=== PATIENT | female | born 1965 ===

== ENCOUNTER 2016-07-25 05:08 | Inpatient (IN) | payer OTHER ==
[~2016-07-25] VITALS: Ht 162.6 cm; Wt 81.6 kg
[2016-07-25] VITALS (14 sets, daily range): BP systolic 116–135; BP diastolic 68–88
[~2016-07-25 05:08] MED LIST: NKM
[2016-07-25] MEDS ORDERED: Thrombin 5000 units TOPIC ONE (06:23)
[2016-07-25] MEDS ORDERED: Bacitracin 50000 Units Vial ONE (06:24)
[2016-07-25] MEDS ORDERED: Bupivacaine w/Epi 0.5% 30ml Vial INJ ONE (06:24)
[2016-07-25] MEDS ORDERED: Vancomycin 1gm inj IVPB ONE (06:24)
[2016-07-25] MEDS ORDERED: Thrombin 5000 units spray kit TOPIC ONE (06:40)
[2016-07-25] MEDS ORDERED: Gelfoam Absorbable 1gm powder pkt TOPIC ONE (06:40)
[2016-07-25] MEDS ORDERED: LR 1000ml 1,000 ML IVLG SCH (06:53)
[2016-07-25] MEDS ORDERED: Norco 5mg/325mg tab ORAL PRN ×2 (07:00→14:52)
[2016-07-25] MEDS ORDERED: Oxycodone/Acetaminophen 5-325 ORAL PRN (07:00)
[2016-07-25] MEDS ORDERED: Ketorolac 60mg Inj IV PRN (07:00)
[2016-07-25] MEDS ORDERED: Labetalol 5mg/ml 20ml vial IV ONE (07:00)
[2016-07-25] MEDS ORDERED: fentaNYL 100 mcg/2 mL IV PRN (07:00)
[2016-07-25] MEDS ORDERED: LR 1000ml ONE (07:00)
[2016-07-25] MEDS ORDERED: Ketorolac 30mg Inj IV PRN (07:00)
[2016-07-25] MEDS ORDERED: Dexamethasone 20mg/5ml IVP ONE (07:00)
[2016-07-25] MEDS ORDERED: fentaNYL 250mcg/5ml ONE (07:00)
[2016-07-25] MEDS ORDERED: Atropine Inj 1mg/10ml Syr IV PRN (07:00)
[2016-07-25] MEDS ORDERED: Succinylcholine 20mg/ml 10ml vial ONE (07:00)
[2016-07-25] MEDS ORDERED: Dexamethasone 4mg/ml vial ONE (07:00)
[2016-07-25] MEDS ORDERED: Metoclopramide 10mg/2ml Inj IVP PRN (07:00)
[2016-07-25] MEDS ORDERED: fentaNYL 100 mcg/2 mL IV ONE (07:00)
[2016-07-25] MEDS ORDERED: Meperidine 25mg/0.5ml Inj IV PRN (07:00)
[2016-07-25] MEDS ORDERED: NS Irrig 1000ml ONE (07:00)
[2016-07-25] MEDS ORDERED: Lidocaine 1% MPF 10mg/ml 5ml ONE (07:00)
[2016-07-25] MEDS ORDERED: Norco 7.5mg/325mg tab ORAL PRN (07:00)
[2016-07-25] MEDS ORDERED: Hydromorphone 0.5mg/0.5ml inj IVP PRN (07:00)
[2016-07-25] MEDS ORDERED: DiphenhydrAMINE 50mg/ml Inj IVP PRN (07:00)
[2016-07-25] MEDS ORDERED: ceFAZolin sod 2 GM in D5W 110 ML IVPB ONE (07:00)
[2016-07-25] MEDS ORDERED: LORazepam Inj 2mg/ml 1ml IV PRN (07:00)
[2016-07-25] MEDS ORDERED: Midazolam 2mg/2ml Inj IVP PRN (07:00)
[2016-07-25] MEDS ORDERED: Sterile Water Irrig 1000ml IRRIG ONE (07:00)
[2016-07-25] MEDS ORDERED: Propofol 10mg/ml 20ml IV ONE (07:00)
--- NOTE | 2016-07-25 07:15 | Pre-Procedure Note/Attestation ---
Pre-Procedure Note/Attestation Complete Prior to Procedure Procedure Narrative: acdf c45 and c56 Indications for Procedure Pre-Operative Diagnosis: cervical myeloradiculopathy Attestation I attest that I discussed the nature of the procedure; its benefits; risks and complications; and alternatives (and the risks and benefits of such alternatives ), prior to the procedure, with the patient (or the patient's legal agency service representative). I attest that, if there was a reasonable possibility of needing a blood transfusion, the patient (or the patient's legal agency service representative) was given the [facility] standardized written summary, pursuant to the [place] Blood Safety Act ([place] Health and Safety Code # 1645, as amended). I attest that I re-evaluated the patient just prior to the surgery and that there has been no change in the patient's H&P, except as documented below: JULIANNA GONZALES July 25, 2016 07:15
--- NOTE | 2016-07-25 07:18 | 48 Hour Post Anesthesia Eval ---
JULIANNA GONZALES July 25, 2016 07:18
[2016-07-25] MEDS ORDERED: Acetaminophen (Non formulary) 1,000 MG/100 ML ML IV ONE (08:00)
--- NOTE | 2016-07-25 08:47 | Anethesia Preoperative Eval ---
Anesthesia Pre-op PMH/ROS General Date of Evaluation: July 25, 2016 Time of Evaluation: 07:09 Anesthesiologist: Gabbie ASA Score: ASA 3 Mallampati Score Class I : Soft palate, uvula, fauces, pillars visible Class II: Soft palate, uvula, fauces visible Class III: Soft palate, base of uvula visible Class IV: Only hard plate visible Mallampati Classification: Class II Surgeon: Yahir Diagnosis: Neck Pain Surgical Procedure: ACDF C4-5, C5-6, Allograft Anesthesia History: none Family History: no anesthesia problems Allergies: Coded Allergies: SULFA (SULFONAMIDE ANTIBIOTICS) (Verified Allergy, Severe, 07/24/16) SULFAMETHOXAZOLE (Verified Allergy, Severe, 07/24/16) TRIMETHOPRIM (Verified Allergy, Severe, 07/24/16) Medications: see eMAR Past Medical History Cardiovascular: Reports: HTN Other: obesity - BMI 30 PSxH Narrative: Breast Reduction, Cholecystectomy, C/S X3 Anesthesia Pre-op Phys. Exam Physician Exam Last Vital Signs Date Time Temp Pulse Resp B/P Pulse Ox O2 Delivery O2 Flow Rate FiO2 07/25/16 05:53 97.5 77 20 135/84 95 Room Air Constitutional: NAD Neurologic: CN 2-12 intact Cardiovascular: RRR Respiratory: CTA Gastrointestinal: S/NT/ND Airway Exam Mallampati Score: Class II MO: full ROM: limited Teeth: intact Anesthesia Pre-op A/P Labs Urine Test Test 07/25/16 05:25 Urine HCG, Qualitative Negative Risk Assessment & Plan Assessment: ASA 3 Plan: GA, BIS, Glidescope Pre-Antibiotics Dru Grams Ancef IV Given Within 1 Hr of Incision: Yes Time Given: 07:26 Alex Cartwright MD July 25, 2016 08:47
--- NOTE | 2016-07-25 08:48 | Immediate Post-Op Evaluation ---
Immediate Post-Op Evalulation Immediate Post-Op Evalulation Procedure: ACDF C4-5, C5-6, Allograft Date of Evaluation: July 25, 2016 Time of Evaluation: 11:14 IV Fluids: 800 LR Blood Products: 0 Estimated Blood Loss: 25 Urinary Output: 200 Blood Pressure Systolic: 130 Blood Pressure Diastolic: 73 Pulse Rate: 115 Respiratory Rate: 16 O2 Sat by Pulse Oximetry: 95 Temperature (Fahrenheit): 97.7 Pain Score (1-10): 3 Nausea: No Vomiting: No Complications 0 Patient Status: awake, reacts, patent, extubated, none Hydration Status: adequate Dru Grams Ancef IV Given Within 1 Hr of Incision: Yes Time Given: 07:26 Alex Cartwright MD July 25, 2016 08:48
--- NOTE | 2016-07-25 10:54 | Brief Operative Note ---
Immediate Post Operative Note Operative Note Pre-op Diagnosis: cervical myeloradiculopathy Procedure: acdf c45 and c56 Post-op Diagnosis: same as above Post-op Diagnosis: same as pre-op Surgeon: socorro Calliope Player: frederic Anesthesiologist: salazar Anesthesia: general Specimen: none Complications: none Condition: stable Fluids: 800cc Estimated Blood Loss: volume - less than 25 cc Drains: none Implant(s) used?: Yes JULIANNA GONZALES July 25, 2016 10:54
--- NOTE | 2016-07-25 13:51 | Diagnostic Imaging Report ---
Indication: Neck Pain Findings: Fluoroscopic views of the cervical spine were obtained. Anterior cervical fusion at C4-6 with discectomy/disc prosthesis noted on fluoroscopically obtained imaging. Impression: Intraoperative imaging
[2016-07-25] MEDS ORDERED: Naloxone 0.4mg/ml Inj IVP PRN (14:51)
[2016-07-25] MEDS ORDERED: HYDROmorphone 1mg/ml Carpuject SUBQ PRN (14:51)
[2016-07-25] MEDS ORDERED: HYDROmorphone 1mg/ml Carpuject IVP PRN (14:52)
[2016-07-25] MEDS: D5 1/2NS 1,000 ML IV SCH (15:19)
[2016-07-25] MEDS: ceFAZolin sod 1 GM in D5W 55 ML IV SCH (15:37)
[2016-07-25] MEDS: Docusate 100mg cap ORAL SCH (17:35)
[2016-07-26] MEDS: ceFAZolin sod 1 GM in D5W 55 ML IV SCH ×2 (00:06→08:06)
--- NOTE | 2016-07-26 00:18 | Operative Note - Dictated ---
DATE OF OPERATION: 07/25/2016 PREOPERATIVE DIAGNOSIS: C4-5 and C5-6 disc extrusions with spinal cord compression, stenosis, myelomalacia, and upper extremity myeloradiculopathy. POSTOPERATIVE DIAGNOSIS: C4-5 and C5-6 disc extrusions with spinal cord compression, stenosis, myelomalacia, and upper extremity myeloradiculopathy. PROCEDURE PERFORMED: 1. Interbody arthrodesis of C4-5 and C5-6. 2. Anterior cervical instrumentation, C4-5 and C5-6. 3. Anterior diskectomy with decompression of the spinal cord at C4-5 and C5-6. 4. Implantation of PEEK with local autograft and allograft at C4-5 and C5-6. 5. Intraoperative use of fluoroscopy. 6. Intraoperative use of microscope. 7. SSEP/MEP/EMG neuromonitoring. SURGEON: Kalyan Sinclair M.D. TECHNICAL SALES SUPPORT SPECIALIST: Henry Machuca M.D. ANESTHESIA: General endotracheal anesthesia. ANESTHESIOLOGIST: Alex Cartwright M.D. ESTIMATED BLOOD LOSS: Less than 25 mL. INTRAVENOUS ANTIBIOTICS: 2 g of Ancef. OTHER IV MEDICATIONS: 10 mg of dexamethasone. COMPLICATIONS: None. BACKGROUND INDICATIONS: This is pleasant female who presented with myeloradiculopathy, pain, numbness and tingling in the upper extremities, and upper motor neuron signs. She had failed nonoperative treatments and option for above treatment were given. Risks, alternatives, and benefits were discussed with the patient. Risks include, but are not limited to anesthesia complications including and medical complications including liver, kidney and cardiopulmonary deficits; bleeding; infection; dysphonia; dysphagia; hematoma of the neck; nerve root injury; paralysis; spinal cord injury; CSF leak; dural tear; fracture of the hardware, loosening of the hardware, and need for revision surgery; swallowing difficulties; esophageal injury; tracheal injury; recurrent laryngeal nerve injury as well as other complications including compartment syndrome. The patient understood and wished to proceed. All the patient's questions were answered. Written and verbal consent was given. No guarantees were given. OPERATIVE FINDINGS: Disk extrusions at C4-5 and C5-6 with spinal cord compression and neural foraminal stenosis and stenosis for the bilateral exiting nerve roots at C4-5 and C5-6. DESCRIPTION OF OPERATION: The patient was brought to the operating room supine on a stretcher. Appropriate IV lines were placed by the anesthesiologist. A surgical time-out was called. 2 g of Ancef was administered 30 minutes before the incision. 10 mg of dexamethasone was administered. The patient was induced and intubated without complication. The patient was placed onto the operating room table. The neck was placed into neutral alignment. The arms were tucked by the side. All bony prominences were well padded as well as the four extremities. SSEP/MEP/EMG monitoring leads were placed, recorded, and remained stable throughout the case. Preoperative fluoroscopy revealed the planned incision to be over the C4-5 and C5-6 vertebral bodies. Fluoroscopy revealed the neck to be in adequate alignment. The neck was prepped and draped in the usual sterile fashion. At this point, the intraoperatively sterilely draped microscope was brought into the field. The incision was carried out with a scalpel on the anterior right side of the neck in the crease of the neck. Hemostasis was achieved with bipolar cautery. The platysma was incised in line with the skin incision. Blunt dissection was carried out in the interval between the strap muscles and sternocleidomastoid. Superficial cervical fascia was dissected caudally as well as cephalad. Carotid pulses palpated and found to be well lateral to the field of dissection. Deep cervical fascia was encountered. Once the deep cervical fascia was encountered, blunt dissection was carried out with [place] as well as finger dissection to find the prevertebral space. The longus colli was found on both sides of the spine, and the longus colli was carefully subperiosteally dissected off of the spine. At this point, retractors were set into place. The cuff pressure was released. The spinal needle was used to identify the C4-5 and C5-6 disc spaces with lateral fluoroscopy. Retractors were set into place. At this point, attention was diverted first to the C5-6 level. The diskectomy was begun with #15 scalpel. With straight and curved curettes; #2, #3, and #1 Kerrison punches; and a high-speed drill, a radical diskectomy was accomplished at C5-6. Endplate cartilage was removed. Endplate bone was well preserved. The high-speed drill was used to remove the posterior aspect of the C5 and C6 vertebral bodies to the level of the posterior longitudinal ligament. A Microsect curette was taken to the left corner of the posterior longitudinal ligament where there was no spinal cord compression and the Microsect-2 curette was carefully teased under the posterior longitudinal ligament. With extreme care, a #1 Kerrison punch was taken to carefully remove the posterior margin of the longitudinal ligament, and the disk herniation/extrusion that was causing significant compression on the spinal cord. This was carefully done and all disc material was removed. There was significant spinal cord compression and severe spinal stenosis over the central and right paracentral regions. There was severe stenosis in the right foraminal region as well. All disc herniation was removed. Complete anterior foraminotomy was accomplished, and a Microsect 2 curette was used to verify that the foramina were patent. Valsalva at 40 mmHg was done. There was no CSF leak, and at this point, attention was diverted to copiously irrigating the disk space and all loose disk material was removed. Now, the retractors were carefully removed to the C4-5 level and in the same order of events with the same instruments, a radical diskectomy was accomplished all end-plate cartilage was removed. Endplate bone was well preserved. A high-speed drill was taken to the posterior aspect of the C4 and C5 vertebral bodies to the level of the posterior longitudinal ligament. A Microsect 2 curette was used to carefully tease under the posterior longitudinal ligament, and a #1 Kerrison punch was used to carefully remove the posterior longitudinal ligament as well as all disc material that was pressing on spinal cord and causing neural element compression and compression on the exiting nerve roots. Once all disc material was removed, the Microcytic-2 curette was used to verify that the foramina were taken. At this point, the wound was copiously irrigated with triple antibiotic solution. Neuromonitoring has remained stable, and attention now was diverted to using the trials from the [employer] to pick the correct sized PEEK implants. Trials were used and subsequently, a 7 mm in height lordotic PEEK cage x 13 mm x 16 mm was chosen, packed with [place] allograft as well as local autograft, and tamped into place at the C5-6 level. There was excellent apposition against the endplates and good lordosis. Now, at the C4-5 level, a 6 mm in height x 16 x 13 mm PEEK interbody device was chosen, packed with [place] allograft, as well as local autograft and tamped into place at C4-5 with excellent recreation of lordosis. A 28 mm [place] plate was chosen and bent into a lordotic fashion and with the guidance of AP and lateral fluoroscopy, it was fixed to the anterior surface of the C4, C5, and C6 vertebral bodies with five 4.0 x 14 mm self-drilling screws and one 4.5 x 14 mm screw. Each screw had excellent purchase into the vertebral body and sat below the locking mechanism of the plate well, but sat snug against the vertebral bodies. An AP and lateral fluoroscopy revealed all instrumentation to be in excellent position. The wound was copiously irrigated with triple antibiotic solution. Hemostasis was achieved. There was no bleeding, and therefore, a Hemovac drain was deemed not to be necessary. Now, attention was diverted to closure. The platysma was closed with 2-0 Vicryl sutures. The subdermal and subcuticular layers were closed with 3-0 Vicryl sutures. The skin was closed with Dermabond. Sterile dressing and tape was placed. C-collar was placed. The patient was extubated without complication, was taken to recovery room in stable condition, was found to be neurovascularly intact, and admitted to the hospital for observation. Kalyan Sinclair M.D. DR: GULSHAN JOB#: [id number] CC:
[2016-07-26 00:20] VITALS: BP 116/65
[2016-07-26] MEDS: D5 1/2NS 1,000 ML IV SCH ×4 (01:25→21:00)
[2016-07-26 04:00] VITALS: BP 121/76
[2016-07-26 08:00] VITALS: BP 144/83
[2016-07-26] MEDS: Norco 7.5mg/325mg tab ORAL PRN ×3 (08:14→19:32)
[2016-07-26] MEDS: Docusate 100mg cap ORAL SCH ×2 (08:29→17:37)
[2016-07-26 12:00] VITALS: BP 133/78
--- NOTE | 2016-07-26 12:20 | 48 Hour Post Anesthesia Eval ---
Post Anesthesia Evaluation Procedure: ACDF C4-5, C5-6, Allograft Date of Evaluation: July 26, 2016 Time of Evaluation: 12:18 Blood Pressure Systolic: 124 0: 65 Pulse Rate: 76 Respiratory Rate: 22 Temperature (Fahrenheit): 97.6 O2 Sat by Pulse Oximetry: 98 Airway: patent Nausea: No Vomiting: No Pain Intensity: 3 Hydration Status: adequate Cardiopulmonary Status: stable Mental Status/LOC: patient returned to baseline Follow-up Care/Observations: n/a Post-Anesthesia Complications: none Follow-up care needed: N/A PETRA FERRELL M.D. July 26, 2016 12:20
--- NOTE | 2016-07-26 12:28 | General Progress Note ---
Assessment/Plan Assessment/Plan 1)Cervical spine stenosis s/p decompression surgery 2) Obesity 3) Clinically euvolemic Plan: Continue current measures OK to discharge Subjective Allergies: Coded Allergies: SULFA (SULFONAMIDE ANTIBIOTICS) (Verified Allergy, Severe, 07/24/16) SULFAMETHOXAZOLE (Verified Allergy, Severe, 07/24/16) TRIMETHOPRIM (Verified Allergy, Severe, 07/24/16) All Systems: reviewed and negative except above Subjective She is s/p decompression surgery for cervical spine stenosis, no c/p or sob, she is walking around, no c/p or sob Objective Last 24 Hour Vital Signs Date Time Temp Pulse Resp B/P Pulse Ox O2 Delivery O2 Flow Rate FiO2 07/26/16 11:30 97.6 07/26/16 09:13 97.6 07/26/16 08:00 97.3 86 18 144/83 98 Nasal Cannula 2.0 07/26/16 04:00 97.6 89 19 121/76 97 Nasal Cannula 4.0 07/26/16 00:20 97.4 105 19 116/65 97 Nasal Cannula 4.0 07/25/16 20:00 97.3 99 18 123/80 95 Nasal Cannula 4.0 07/25/16 16:00 97.9 95 20 122/73 96 Nasal Cannula 4.0 07/25/16 15:37 97.7 07/25/16 14:00 97.9 97 19 127/81 94 Nasal Cannula 4.0 07/25/16 13:00 97.7 07/25/16 13:00 97.8 107 16 116/68 96 Nasal Cannula 3.0 07/25/16 13:00 97.9 98 20 129/78 97 Nasal Cannula 4.0 07/25/16 12:45 99 17 122/69 95 Nasal Cannula 3.0 07/25/16 12:30 102 18 129/88 96 Nasal Cannula 3.0 07/25/16 12:15 97 15 129/88 95 Nasal Cannula 3.0 Intake and Output 07/25/16 07/26/16 19:00 07:00 Intake Total 1045 ml 1640 ml Output Total 795 ml 1300 ml Balance 250 ml 340 ml Intake Oral 240 ml 240 ml IV Total 805 ml 1400 ml Output Urine Total 775 ml 1300 ml Estimated Blood Loss 20 ml # Voids 2 Height (Feet): 5 Height (Inches): 4.00 Weight (Pounds): 180 General Appearance: WD/WN, no apparent distress, alert EENT: PERRL/EOMI Neck: non-tender, normal alignment, supple Cardiovascular: normal peripheral pulses, normal rate Respiratory/Chest: chest wall non-tender, lungs clear Abdomen: non tender, soft Extremities: normal range of motion CASSIE CASTANEDA July 26, 2016 12:28
[2016-07-26 16:00] VITALS: BP 131/76
[2016-07-26] MEDS ORDERED: D5 1/2NS 1000ml IV ONE (18:25)
[2016-07-26] MEDS ORDERED: Tubing IV Secondary IV ONE (18:25)
[2016-07-26 20:29] VITALS: BP 114/78
--- NOTE | 2016-07-29 10:25 | Discharge Summary ---
Discharge Summary Hospital Course Date of Admission July 25, 2016 at 05:08 Date of Discharge July 26, 2016 at 22:16 Admitting Diagnosis cervical radiculopathy Reason for Hospitalization: eelctive surgery HPI Dee Murphy is a 51 year old female who was admitted on July 25, 2016 at 05:08 for Cervical Radiculopathy Consultations dr Medrano IM Procedures 07/25/16- DR GONZALES 1. Interbody arthrodesis of C4-5 and C5-6. 2. Anterior cervical instrumentation, C4-5 and C5-6. 3. Anterior diskectomy with decompression of the spinal cord at C4-5 and C5-6. 4. Implantation of PEEK with local autograft and allograft at C4-5 and C5-6. 5. Intraoperative use of fluoroscopy. 6. Intraoperative use of microscope. 7. SSEP/MEP/EMG neuromonitoring. Hospital Course s/p surgery pain management diet as tolerated neurovascular intact incision C/D/I bowel regimen ambulatory [place] for discharge DISCHARGE DIAGNOSES C4-5 and C5-6 disc extrusions with spinal cord compression cervical spine stenosis cervical myeloradiculopathy s/p 07/25 - Anterior diskectomy with decompression of the spinal cord at C4-5 and C5-6. Obesity follow up as outpatient with surgeon as recommended Discharge Medications Discontinued Medications: No Known Medications* (NKM - No Known Medications*) . 0 ., 0 Refills Discharge Condition Upon Discharge: stable Discharge Disposition Patient was discharged home Discharge Diagnoses: Discharge Instructions Discharge Instructions Special Instructions I have been assigned to complete a D/C Summary on this account. I was not involved in the patient management Lilo Segal NP ([place]) July 29, 2016 10:25
== END 2016-07-26 22:16 | disposition home or self-care (01) | DRG 472 ==
LOC: SDSOVERFLO 05:08 → 3E 13:30
DX: M50.021 Cervical disc disorder at C4-C5 level with myelopathy (principal); G95.89 Other specified diseases of spinal cord; M50.121 Cervical disc disorder at C4-C5 level with radiculopathy; M48.02 Spinal stenosis, cervical region; Z88.2 Allergy status to sulfonamides; Z88.8 Allergy status to other drugs, medicaments and biological substances; I10 Essential (primary) hypertension; E66.9 Obesity, unspecified
CPT/HCPCS: 36415; 72040; 76001; 81025; 86850; 86900; 86901; 87081; 94003; 94150; J2180; J2405